=== PATIENT | male | born 1995 | race African-American/Black ===

== ENCOUNTER 2017-07-17 17:19 | Emergency (ER) | payer OTHER ==
[~2017-07-17] VITALS: Ht 177.8 cm; Wt 68.9 kg
[~2017-07-17 17:19] MED LIST: MOTRIN600 MG PO; NAPROXEN500 MG PO; NOHOMEMEDS
[2017-07-17 19:02] LABS: HEMATOCRIT 39.2 % (38.0-50.0); MCHC 32.1 G/DL (30.0-36.0); MCV 74.5 FL (86-99); MEAN PLAT.VOLUME 9.1 uM^3 (9.0-12.4); PLATELET COUNT 247 K/uL (156-360); RBC DIS.WIDTH-CV 14.5 % (11.8-14.6); RBC DIS.WIDTH-SD 38.3 % (39-53); RED BLOOD COUNT 5.26 M/uL (4.00-5.50); WHITE BLOOD COUNT 4.3 K/uL (4.1-10.2)
[2017-07-17 19:03] LABS: CHLORIDE 104 mEq/L (99-109); POTASSIUM 4.5 mEq/L (3.7-5.4); SODIUM 140 mEq/L (136-147)
[2017-07-17 19:05] LABS: GLUCOSE 89 mg/dL (70-99)
[2017-07-17 19:06] LABS: ANION GAP 10 MEQ/L (2-14)
[2017-07-17 19:08] LABS: SERUM ETHYL ALCOHOL < 10 mg/dL
[2017-07-17 19:09] LABS: GFR ESTIMATE (CALCULATED) > 59 mL/min/
[2017-07-17 19:10] LABS: UREA NITROGEN (BUN) 14 mg/dL (9-23)
[2017-07-17 20:53] LABS: ADD MEDTOX COMMENT Y; AMPHETAMINE NEGATIVE (500 ng/mL); BARBITURATES NEGATIVE (200 ng/mL); BENZODIAZEPINES NEGATIVE (150 ng/mL); COCAINE NEGATIVE (150 ng/mL); INTERNAL CONTROLS VALID? YES; METHADONE NEGATIVE (200 ng/mL); METHAMPHETAMINE NEGATIVE (500 ng/mL); OPIATES (MORPHINE) NEGATIVE (100 ng/mL); OXYCODONE NEGATIVE (100 ng/mL); PHENCYCLIDINE NEGATIVE (25 ng/mL); PROPOXYPHENE NEGATIVE (300 ng/mL); THC CANNABINOIDS PRESUMPTIVE POSITIVE (50 ng/mL); TRICYCLIC ANTIDEPRESSANTS NEGATIVE (300 ng/mL)
[2017-07-17] MEDS ORDERED: ZOLOFT50 MG PO (22:22)
[2017-07-17 22:33] VITALS: BP 127/60
== END 2017-07-17 22:34 | disposition home or self-care (01) ==
LOC: EME 17:19
DX: F32.9 Major depressive disorder, single episode, unspecified (principal); Z87.891 Personal history of nicotine dependence
CPT/HCPCS: 80048; 84999; 85027; 90839; 99281; 99284; G0480

== ENCOUNTER 2018-06-10 06:48 | Emergency (ER) | payer SELFPAY ==
[~2018-06-10] VITALS: Ht 177.8 cm; Wt 74.1 kg
[~2018-06-10 06:48] MED LIST changes: +ZOLOFT50 MG PO
[2018-06-10 09:31] VITALS: BP 131/78
== END 2018-06-10 09:32 | disposition home or self-care (01) ==
LOC: EME 06:48
PROC: 2W3JX1Z Immobilization of Right Finger using Splint (ICD-10-PCS; principal; 2018-06-10)
DX: S63.612A Unspecified sprain of right middle finger, initial encounter (principal); W23.0XXA Caught, crushed, jammed, or pinched between moving objects, initial encounter; Y93.67 Activity, basketball
CPT/HCPCS: 73130; 99281; 99284